=== PATIENT | male | born 1945 | race Caucasian/White ===

== ENCOUNTER 2020-07-10 15:14 | Emergency (ER) | payer SELFPAY ==
[2020-07-10] MEDS ORDERED: Dextrose 5%-0.9% NaCl 1,000 ML IV SCH (15:30)
--- NOTE | 2020-07-10 15:30 | EDM.PDOC ---
ED HPI GENERAL MEDICAL PROBLEM - General Chief Complaint: Cardiovascular Problem Stated Complaint: [facility] Time Seen by Provider: 07/10/20 15:19 Source of Information: Reports: Patient, EMS, Provider ( ukldip Mccray in [facility] ) History Limitations: Reports: No Limitations - History of Present Illness INITIAL COMMENTS - FREE TEXT/NARRATIVE: 75-year-old male presents to the ED per [place] [facility] after being seen at [facility] by Kuldip Mccray nurse practitioner. Patient reports he has been having increasing central chest pain discomfort for the better part of weeks gradually getting worse on exertion. The pain would get better if he stopped exerting himself a unstable angina. 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 He states he could not continue because of the intens ity of the discomfort. He states it was not as bad as what he is experienced in the past but it did not go away and stayed with him all day and all night. He states it went away after he got to the clinic today at about 1330 hrs. Apparently he did not get any nitroglycerin but did receive 4 baby aspirin chewed and did receive an albuterol treatment. He has a history of known coronary disease having had double bypass surgery he believes in 2011 in [place], [place]. 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 Used to smoke but quit in the 1960s. Pressure usually runs on the low side. He states the chest pain was central and described as a pressure sensation did not radiate through to his back into his neck arms or jaw. At the time he was seen in the ED he is pain-free. However his ECG done reveals ST segment depression V2 to V6 and also in leads I and II suggestive of anterior lateral ischemia or non-STEMI. Patient reports he has not eaten for 2 days but has been taking some fluids. He reports he went off medications many years ago and never refilled them. Currently is on no meds Onset: Sudden Onset Date: 07/09/20 Onset Time: 09:00 (Quit work at about 10:00 yesterday morning because of pain would not let up) Duration: Hour(s):, Resolved Prior to Arrival Location: Reports: Chest (Central chest pressure discomfort.) Quality: Reports: Pressure Severity: Moderate (Pain was 8-9 out of 10 yesterday afternoon and is now gone) Improves with: Reports: Other (And away spontaneously about 130 today.) Worsens with: Reports: Other Context: Reports: Other (History suggests unstable angina developing over the last 2 weeks). Denies: Activity, Exercise, Lifting, Sick Contact, Trauma Associated Symptoms: Reports: Chest Pain, Loss of Appetite, Shortness of Breath. Denies: Confusion, Cough, cough w sputum, Diaphoresis, Fever/Chills, Headaches, Malaise, Nausea/Vomiting, Rash, Seizure, Syncope (Only short of breath), Weakness Treatments [employer]: Reports: Other (see below) (None.) - Related Data Allergies Allergy/AdvReac Type Severity Reaction Status Date / Time No Known Allergies Allergy Verified 07/10/20 15:31 Home Meds: Home Meds . [No Known Home Meds] 07/10/20 [History] Past Medical History Cardiovascular History: Reports: Bypass (Double bypass carried out he believes in 2011 in [facility] CAD, [place], SOB on Exertion Respiratory History: Reports: COPD (COPD by history.) Genitourinary History: Reports: BPH, Other (See Below) Musculoskeletal History: Reports: Arthritis (Tammy knees hips shoulders and neck.), Back Pain, Chronic, Osteoarthritis Social & Family History - Living Situation & Occupation Living situation: Reports: Single Occupation: Employed (Employed and still of ranching and farming.) ED ROS GENERAL - Review of Systems Review Of Systems: See Below Constitutional: Reports: Decreased Appetite. Denies: Fever, Chills, Malaise, Weakness, Fatigue, Weight Loss HEENT: Reports: Glasses Respiratory: Reports: Shortness of Breath (Glasses for reading.). Denies: Wh eezing, Pleuritic Chest Pain, Cough Cardiovascular: Reports: Chest Pain (Gradually worsening chest pain over the last 2 weeks on exertion. Pain would go away when he rested. However yesterday when the pain came on at about 930 yesterday morning it did not let up and has continued up until 130 today.), Dyspnea on Exertion. Denies: Blood Pressure Problem, Claudication, Edema, Lightheadedness, Orthopnea Endocrine: Reports: No Symptoms GI/Abdominal: Reports: No Symptoms : Reports: Frequency, Other (Nocturia 2-3 times nightly.) Musculoskeletal: Reports: Back Pain, Joint Pain (His hips neck and shoulders at times) Skin: Reports: No Symptoms Neurological: Reports: No Symptoms Psychiatric: Reports: No Symptoms Hematologic/Lymphatic: Reports: No Symptoms Immunologic: Reports: No Symptoms ED EXAM, GENERAL - Physical Exam Exam: See Below Exam Limited By: No Limitations General Appearance: Alert, WD/WN, No Apparent Distress, Other (Temperature is 36.4 with a heart rate of 87. Respiratory it is 20 BP 105/64 and actually went down to 103/60. Therefore nitroglycerin was contraindicated but he is also pain-free at the time he was seen. O2 sats were 93 to 94% on room air and he was therefore placed on 2 L/min by nasal cannula.) Eye Exam: Bilateral Eye: Normal Inspection, PERRL Throat/Mouth: Normal Inspection, Normal Lips, Normal Oropharynx Head: Atraumatic, Normocephalic Neck: Normal Inspection, Supple, Non-Tender, Full Range of Motion. No: Carotid Bruit, Lymphadenopathy (L), Lymphadenopathy (R), Thyromegaly Respiratory/Chest: No Respiratory Distress, Lungs Clear, Normal Breath Sounds, No Accessory Muscle Use, Decreased Breath Sounds (Sounds are minimally decreased the lower) Cardiovascular: Normal Peripheral Pulses ( 20% lung mosqueda bilaterally.), Regular Rate, Rhythm, No Edema, No Gallop, No Murmur, No Rub Peripheral Pulses: 2+: Posterior Tibial (L), Posterior Tibial (R), Dorsalis Pedis (L), Dorsalis Pedis (R), 3+: Carotid (L), Carotid (R) GI/Abdominal: Normal Bowel Sounds, Soft, Non-Tender, No Organomegaly, No Abnormal Bruit, No Mass, Pelvis Stable, Other (No surgical scars.) Back Exam: Normal Inspection, Full Range of Motion. No: CVA Tenderness (L), CVA Tenderness (R) Extremities: Normal Inspection, Non-Tender, No Pedal Edema, Other Neurological: Alert (Javier of osteoarthritic changes both knees with limited external and internal rotation of both hips combined with arthritic change.), Oriented, CN II-XII Intact, Normal Cognition Psychiatric: Normal Affect, Normal Mood Skin Exam: Warm, Dry, Intact, Normal Color, No Rash EKG INTERPRETATION EKG Date: 07/10/20 Time: 15:23 Rhythm: NSR Rate (Beats/Min): 85 [place]: RAD-Right [place] Deviation (163 degrees) P-Wave: Present (First-degree AV block) QRS: Other (Tall R wave in V1 consider posterior wall infarct.) ST-T: Depressed (ST segment depression V2 to V6 also mildly in lead I and II. This suggests anterior lateral ischemia or non-STEMI.) QT: Prolonged (Mildly prolonged) EKG Interpretation Comments: Abnormal ECG-STEMI anterior lateral wall Course - Vital Signs Last Recorded V/S: Last Vital Signs Temp 36.4 C 07/10/20 15:23 Pulse 87 07/10/20 15:23 Resp 20 07/10/20 15:23 BP 105/64 07/10/20 15:23 Pulse Ox 94 L 07/10/20 15:23 - Orders/Labs/Meds Labs: Laboratory Tests 07/10/20 07/10/20 07/10/20 Range/Units 15:30 15:42 15:42 WBC 10.68 H (4.23-9.07) K/mm3 RBC 5.96 (4.63-6.08) M/mm3 Hgb 16.4 (13.7-17.5) gm/dl Hct 48.0 (40.1-51.0) % MCV 80.5 (79.0-92.2) fl MCH 27.5 (25.7-32.2) pg MCHC 34.2 (32.2-35.5) g/dl RDW Std Deviation 39.0 (35.1-43.9) fL Plt Count 274 (163-337) K/mm3 MPV 8.7 L (9.4-12.3) fl Neut % (Auto) 82.1 H (34.0-67.9) % Lymph % (Auto) 6.9 L (21.8-53.1) % [place] % (Auto) 9.9 (5.3-12.2) % Eos % (Auto) 0.5 L (0.8-7.0) Baso % (Auto) 0.4 (0.1-1.2) % Neut # (Auto) 8.77 H (1.78-5.38) K/mm3 Lymph # (Auto) 0.74 L (1.32-3.57) K/mm3 [place] # (Auto) 1.06 H (0.30-0.82) K/mm3 Eos # (Auto) 0.05 (0.04-0.54) K/mm3 Baso # (Auto) 0.04 (0.01-0.08) K/mm3 Manual Slide Review Not Reportable PT 11.0 (9.7-12.0) SECONDS INR 1.03 APTT (22-31) SECONDS Sodium (136-145) mEq/L Potassium (3.5-5.1) mEq/L Chloride (98-107) mEq/L Carbon Dioxide (21-32) mEq/L Anion Gap (5-15) BUN (7-18) mg/dL Creatinine (0.7-1.3) mg/dL Est Cr Clr Drug Dosing mL/min Estimated GFR (MDRD) (>60) mL/min BUN/Creatinine Ratio (14-18) Glucose (83-115) mg/dL Calcium (8.5-10.1) mg/dL Magnesium (1.8-2.4) mg/dl Total Bilirubin (0.2-1.0) mg/dL AST (15-37) U/L ALT (16-63) U/L Alkaline Phosphatase (46-116) U/L CK-MB (CK-2) (0-3.6) ng/ml Troponin I (0.00-0.056) ng/mL C-Reactive Protein (<1.0) mg/dL NT-Pro-B Natriuret Pep (0-125) pg/mL Total Protein (6.4-8.2) g/dl Albumin (3.4-5.0) g/dl Globulin gm/dL Albumin/Globulin Ratio (1-2) Urine Color Light yellow (Yellow) Urine Appearance Clear (Clear) Urine pH 6.0 (5.0-8.0) Ur Specific [place] 1.015 (1.005-1.030) Urine Protein Negative (Negative) Urine Glucose (UA) Negative (Negative) Urine Ketones Negative (Negative) Urine Occult Blood Negative (Negative) Urine Nitrite Negative (Negative) Urine Bilirubin Negative (Negative) Urine Urobilinogen 0.2 (0.2-1.0) Ur Leukocyte Esterase Negative (Negative) Urine RBC Not seen (0-5) /hpf Urine WBC 0-5 (0-5) /hpf Ur Squamous Epith Cells Not seen (0-5) /hpf Urine Bacteria Rare (FEW) /hpf Urine Mucus Not seen (FEW) /hpf COVID-19 (LISA) (NEGATIVE) 07/10/20 07/10/20 07/10/20 Range/Units 15:42 15:42 15:42 WBC (4.23-9.07) K/mm3 RBC (4.63-6.08) M/mm3 Hgb (13.7-17.5) gm/dl Hct (40.1-51.0) % MCV (79.0-92.2) fl MCH (25.7-32.2) pg MCHC (32.2-35.5) g/dl RDW Std Deviation (35.1-43.9) fL Plt Count (163-337) K/mm3 MPV (9.4-12.3) fl Neut % (Auto) (34.0-67.9) % Lymph % (Auto) (21.8-53.1) % [place] % (Auto) (5.3-12.2) % Eos % (Auto) (0.8-7.0) Baso % (Auto) (0.1-1.2) % Neut # (Auto) (1.78-5.38) K/mm3 Lymph # (Auto) (1.32-3.57) K/mm3 [place] # (Auto) (0.30-0.82) K/mm3 Eos # (Auto) (0.04-0.54) K/mm3 Baso # (Auto) (0.01-0.08) K/mm3 Manual Slide Review PT (9.7-12.0) SECONDS INR APTT 26 (22-31) SECONDS Sodium 131 L (136-145) mEq/L Potassium 4.4 (3.5-5.1) mEq/L Chloride 95 L (98-107) mEq/L Carbon Dioxide 29 (21-32) mEq/L Anion Gap 11.4 (5-15) BUN 14 (7-18) mg/dL Creatinine 1.3 (0.7-1.3) mg/dL Est Cr Clr Drug Dosing 46.61 mL/min Estimated GFR (MDRD) 54 (>60) mL/min BUN/Creatinine Ratio 10.8 L (14-18) Glucose 149 H (83-115) mg/dL Calcium 9.7 (8.5-10.1) mg/dL Magnesium 1.8 (1.8-2.4) mg/dl Total Bilirubin 1.3 H (0.2-1.0) mg/dL AST 235 H (15-37) U/L ALT 48 (16-63) U/L Alkaline Phosphatase 73 (46-116) U/L CK-MB (CK-2) 244.6 H (0-3.6) ng/ml Troponin I 39.002 H* (0.00-0.056) ng/mL C-Reactive Protein 3.6 H* (<1.0) mg/dL NT-Pro-B Natriuret Pep 99955 H (0-125) pg/mL Total Protein 7.3 (6.4-8.2) g/dl Albumin 3.8 (3.4-5.0) g/dl Globulin 3.5 gm/dL Albumin/Globulin Ratio 1.1 (1-2) Urine Color (Yellow) Urine Appearance (Clear) Urine pH (5.0-8.0) Ur Specific [place] (1.005-1.030) Urine Protein (Negative) Urine Glucose (UA) (Negative) Urine Ketones (Negative) Urine Occult Blood (Negative) Urine Nitrite (Negative) Urine Bilirubin (Negative) Urine Urobilinogen (0.2-1.0) Ur Leukocyte Esterase (Negative) Urine RBC (0-5) /hpf Urine WBC (0-5) /hpf Ur Squamous Epith Cells (0-5) /hpf Urine Bacteria (FEW) /hpf Urine Mucus (FEW) /hpf COVID-19 (LISA) (NEGATIVE) 07/10/20 Range/Units 17:15 WBC (4.23-9.07) K/mm3 RBC (4.63-6.08) M/mm3 Hgb (13.7-17.5) gm/dl Hct (40.1-51.0) % MCV (79.0-92.2) fl MCH (25.7-32.2) pg MCHC (32.2-35.5) g/dl RDW Std Deviation (35.1-43.9) fL Plt Count (163-337) K/mm3 MPV (9.4-12.3) fl Neut % (Auto) (34.0-67.9) % Lymph % (Auto) (21.8-53.1) % [place] % (Auto) (5.3-12.2) % Eos % (Auto) (0.8-7.0) Baso % (Auto) (0.1-1.2) % Neut # (Auto) (1.78-5.38) K/mm3 Lymph # (Auto) (1.32-3.57) K/mm3 [place] # (Auto) (0.30-0.82) K/mm3 Eos # (Auto) (0.04-0.54) K/mm3 Baso # (Auto) (0.01-0.08) K/mm3 Manual Slide Review PT (9.7-12.0) SECONDS INR APTT (22-31) SECONDS Sodium (136-145) mEq/L Potassium (3.5-5.1) mEq/L Chloride (98-107) mEq/L Carbon Dioxide (21-32) mEq/L Anion Gap (5-15) BUN (7-18) mg/dL Creatinine (0.7-1.3) mg/dL Est Cr Clr Drug Dosing mL/min Estimated GFR (MDRD) (>60) mL/min BUN/Creatinine Ratio (14-18) Glucose (83-115) mg/dL Calcium (8.5-10.1) mg/dL Magnesium (1.8-2.4) mg/dl Total Bilirubin (0.2-1.0) mg/dL AST (15-37) U/L ALT (16-63) U/L Alkaline Phosphatase (46-116) U/L CK-MB (CK-2) (0-3.6) ng/ml Troponin I (0.00-0.056) ng/mL C-Reactive Protein (<1.0) mg/dL NT-Pro-B Natriuret Pep (0-125) pg/mL Total Protein (6.4-8.2) g/dl Albumin (3.4-5.0) g/dl Globulin gm/dL Albumin/Globulin Ratio (1-2) Urine Color (Yellow) Urine Appearance (Clear) Urine pH (5.0-8.0) Ur Specific [place] (1.005-1.030) Urine Protein (Negative) Urine Glucose (UA) (Negative) Urine Ketones (Negative) Urine Occult Blood (Negative) Urine Nitrite (Negative) Urine Bilirubin (Negative) Urine Urobilinogen (0.2-1.0) Ur Leukocyte Esterase (Negative) Urine RBC (0-5) /hpf Urine WBC (0-5) /hpf Ur Squamous Epith Cells (0-5) /hpf Urine Bacteria (FEW) /hpf Urine Mucus (FEW) /hpf COVID-19 (LISA) Negative (NEGATIVE) Meds: Medications Discontinued Medications Generic Name Dose Route Start Last Admin Trade Name Freq PRN Reason Stop Dose Admin Al Hydroxide/Mg Hydroxide 30 ml 07/10/20 18:24 07/10/20 18:38 Mag-Al Plus PO 07/10/20 18:25 30 ml ONETIME ONE Administration Furosemide 40 mg 07/10/20 16:38 07/10/20 17:12 Lasix IVPUSH 07/10/20 16:39 40 mg NOW ONE Administration Heparin Sodium (Porcine) 4,000 units 07/10/20 15:36 07/10/20 16:02 Heparin Sodium IVPUSH 07/10/20 15:37 4,000 units .BOLUS ONE Administration Dextrose/Sodium Chloride 1,000 mls @ 100 mls/hr 07/10/20 15:30 07/10/20 16:09 Dextrose 5%-Normal Saline IV 100 mls/hr ASDIRECTED BENJA Administration Heparin Sodium/Dextrose 25,000 units in 500 mls @ 20 mls/hr 07/10/20 15:45 16:06 Heparin 25,000 Units In D5w 500 Ml IV 1,000 units/hr TITRATE BENJA 20 mls/hr Administration 1,000 UNITS/HR Nitroglycerin/Dextrose 25 mg in 250 mls @ 3 mls/hr 07/10/20 18:30 07/10/20 18:37 Nitroglycerin 25 Mg/D5w 250 Ml IV 5 mcg/min TITRATE BENJA 3 mls/hr Administration Protocol 5 MCG/MIN - Radiology Interpretation Free Text/Narrative:: 75-year-old male presents to the ED with a history suggesting unstable angina development over the last 2 weeks where he was developing central chest pressure discomfort on exertion and it would go away if he rested. It gradually worsened over the last several days and yesterday morning while working on the [employer] for somewhere between 9 and 930 he developed quite significant severe central chest pain. When he stopped working the pain did not go away however. He states the intensity of the discomfort made him stop working on the [employer] about 10:00 yesterday morning and he went to the house to rest. He states that the pain in his central chest persisted throughout the day and all night last night. He did attend the clinic in [place] at about 1330 hrs. mom standard time today and he states shortly after they gave him a albuterol treatment and aspirin his pain went away and when he arrived in the ED he was still pain-free. His ECGs done at the clinic were sent to me by fax by Kuldip Mccray his care provider. They suggested ST segment depression from V2 to V6 and in lead I suggestive of an anterolateral non-STEMI. Similar findings on the ECG done in the ED at this time. Blood pressure remains low at 10 3-1 05 systolic. He is pain-free and nitroglycerin will not be utilized. He will be given heparin 4000 unit bolus and then 1000 mils per hour drip. He has taken 4 baby aspirin's in the clinic. Labs to be done. He will have to make a decision as to which hospital he wants to go to in [place] for cardiology assessment and treatment. - Re-Assessments/Exams Free Text/Narrative Re-Assessment/Exam: 07/10/20 16:33 chest x-ray reveals mildly hyperinflated lung mosqueda. Heart size is upper limits of normal. He has marked evidence of prominent pulmonary arteries with pulmonary vasculature congestion/pulmonary edema. Previous sternotomy noted for CABG. Visualized portions of the lungs suggest lower lobe mild fibrosis. Diffuse moderate vascular congestion appreciated. We have no x- rays to compare to. 07/10/20 16:37 White count is 10.68 with 82% neutrophils on the auto differe ntial. Hemoglobin is 16.4 with hematocrit of 48.0 suggesting mild hemoconcentration. Platelet count is 274,000. PT is 11.0 with an INR of 1.03. PTT is 26. Sodium slightly low at 131 with a potassium of 4.4. Chloride is 95 with a bicarb of 29. Anion gap is 11.4. BUN is 14 with a creatinine of 1.3. GFR is 54 glucose is elevated at 149 calcium is 9.7 magnesium is 1.8. Total bilirubin is mildly elevated at 1.3 AST is elevated at 235 ALT is 48. Alk phosphatase is 73. CK-MB fraction is 244.6. Denies 39.002. C-reactive protein 3.6 BNP is 17,222. Total protein 7.3 with an albumin fraction of 3.8. Urinalysis dip is negative for any signs of infection. The micro is pending. Patient will be need to be transferred to [place] for cardiology evaluation and treatment. He remains pain-free at this time. He will be given Lasix 40 mg IV at this time. He is currently deciding which hospital he wishes to be transferred to. 07/10/20 17:15: I have spoken to the [address] Harrell who is excepted care of this patient. He is an on-call hospitalist at [facility]. Case is also been discussed with on-call ob/gyn nurse Dr. Reyes and he has agreed to accept care as well. Promise the hospital just got off of diversion and therefore bed availability is bit up in the ER. Bed will have to be cleansed in room cleansed prior to excepting the patient. 1 call nurse will call back when the bed is available and we will arrange transport per ground ambulance. Patient remains pain-free at this time. 07/10/20 18:23 when offered his supper meal the patient continues to complain of heartburn. Very difficult to discern whether this is true odynophagia or whether there is actual pain all the time made worse by eating. I suspect that this is still cardiac in origin. I am going to try him on low-dose nitroglycerin as his BP is now up to 119/64. I will start him on 5 mcg/min. He will also be given Maalox 30 mils by mouth as well. Departure - Departure Time of Disposition: 20:00 Disposition: DC/Tfer to Acute Hospital 02 Reason for Transfer *Q: Other Condition: Serious Clinical Impression: NSTEMI (non-ST elevated myocardial infarction), Elevated troponin I measurement CHF (congestive heart failure), NYHA class I Qualifiers: Congestive heart failure type: unspecified Qualified Code(s): I50.9 - Heart failure, unspecified Referrals: PCP,None [Primary Care Provider] - Forms: ED Department Discharge Additional Instructions: Patient sent to [facility] in [place] per his request he has had a acute non-STEMI with low blood pressure and significant congestive heart failure. At high risk of developing cardiogenic shock in the next 48 hours.
[2020-07-10] MEDS ORDERED: Heparin Sodium 5,000 Units/ML Vial IVPUSH ONE (15:36)
[2020-07-10] MEDS ORDERED: Heparin Sodium/D5W 25,000 UNITS/500 ML BAG IV SCH (15:45)
--- NOTE | 2020-07-10 16:21 | CR ---
Chest: Portable view of the chest was obtained. Comparison: No prior chest imaging is available. Enlarged hilum are seen in both sides suspicious for adenopathy. Heart is mildly enlarged. Previous sternotomy noted for CABG. Pulmonary vessels appear congested. Bony structures are grossly intact. Impression: 1. Possible mild pulmonary vascular congestion. 2. Enlarged hilum on both sides, difficult to exclude hilar adenopathy. Diagnostic code #3 This report was dictated in MDT
[2020-07-10] MEDS ORDERED: Furosemide 40 MG/4 ML VIAL IVPUSH ONE (16:38)
[2020-07-10] MEDS ORDERED: Aluminum Hydroxide/Magnesium Hydroxide/Simethicone Susp 30 ML Cup PO ONE (18:24)
[2020-07-10] MEDS ORDERED: Nitroglycerin/D5W 25 MG/250 ML BOTTLE IV SCH (18:30)
== END 2020-07-10 20:07 ==
LOC: JD.ED 15:14
DX: I21.4 Non-ST elevation (NSTEMI) myocardial infarction (principal); I50.9 Heart failure, unspecified; R79.89 Other specified abnormal findings of blood chemistry; I25.10 Atherosclerotic heart disease of native coronary artery without angina pectoris; I25.2 Old myocardial infarction; J44.9 Chronic obstructive pulmonary disease, unspecified; Z20.828 Contact with and (suspected) exposure to other viral communicable diseases
CPT/HCPCS: 36415; 71045; 80053; 81001; 82553; 83735; 83880; 84484; 85025; 85610; 85730; 86140; 87635; 93005; 96365; 96366; 96368; 96375; 99285; A9270; J1644; J1940; J3490; J7042; 93010; U0002